=== PATIENT | female | born 1980 | race Two or more races ===

== ENCOUNTER 2019-02-05 07:08 | Emergency (ER) | payer SELFPAY ==
[~2019-02-05] VITALS: Ht 157.5 cm; Wt 115.2 kg
[2019-02-05 07:58] VITALS: BP 137/71
== END 2019-02-05 08:39 | disposition home or self-care (01) ==
LOC: ER 07:15
DX: J20.9 Acute bronchitis, unspecified (principal)

== ENCOUNTER 2024-02-06 11:17 | Emergency (ER) | payer MEDICAID, OTHER ==
[~2024-02-06] VITALS: Ht 165.1 cm; Wt 122.7 kg
[2024-02-06 11:52] LABS: Basophils # (auto) 0 10 ^3/uL (0-0.2); Basophils % (auto) 0.5 % (0.0-2.0); Eosinophils # (auto) 0.1 10 ^3/uL (0-0.8); Eosinophils % (auto) 1.6 % (0.0-7.0); Hematocrit 43.4 % (36.0-46.0); Hemoglobin 14.8 g/dL (12.2-16.2); Lymphocytes # (auto) 2.9 10 ^3/uL (0.4-5.4); Lymphocytes % (auto) 31.6 % (10.0-50.0); Mean Corpuscular Hemoglobin 31.1 pg (28.0-32.0); Mean Corpuscular Hgb Conc. 34.1 g/dL (32.0-36.0); Mean Corpuscular Volume 91.2 fL (80.0-100.0); Monocytes # (auto) 0.6 10 ^3/uL (0-1.3); Monocytes % (auto) 7.1 % (0.0-12.0); Neutrophils # (auto) 5.4 10 ^3/uL (1.6-8.6); Neutrophils % (auto) 59.2 % (37.0-80.0); Nucleated Red Blood Cells % 0.1 %; Platelet Count (auto) 293 10^3/uL (140-450); Red Blood Cells 4.75 10^6/uL (4.0-5.20); Red Cell Distribution Width 14.2 % (11.8-14.3)
[2024-02-06] MEDS: SODIUM CHLORIDE 0.9% 500 ML IV ONE (12:00)
[2024-02-06 12:17] LABS: Alanine Aminotransferase 95 U/L (7-40); Albumin 4.7 g/dL (3.2-4.8); Alkaline Phosphatase 128 U/L (46-116); Anion Gap 6 (5-15); Aspartate Aminotransferase 50 U/L (13-40); Blood Urea Nitrogen 10 mg/dL (9-23); Calcium 9.5 mg/dL (8.7-10.4); Carbon Dioxide 28 mmol/L (20-30); Chloride 108 mmol/L (98-107); Glucose 119 mg/dL (74-106); Magnesium 2.1 mg/dL (1.6-2.6); Potassium 4.2 mmol/L (3.5-5.1); Sodium 142 mmol/L (136-145)
[2024-02-06 12:18] LABS: Bilirubin, Total 0.6 mg/dL (0.2-1.0); Total Protein 8.1 g/dL (5.7-8.2)
[2024-02-06] MEDS: ASPirin 325 MG TAB PO ONE (15:40)
[2024-02-06] MEDS: NITROGLYCERIN 0.4 MG SL TAB SL ONE (15:41)
[2024-02-06 19:45] VITALS: BP 162/103; PULSE 77; RESP 17; TEMP 98.2; O2SAT 97
[2024-02-06] MEDS: HYDROcodone-ACET 5/325MG TAB PO ONE (19:53)
== END 2024-02-06 19:57 | disposition short-term general hospital (02) ==
LOC: ER 11:17
DX: R07.89 Other chest pain (principal); R94.31 Abnormal electrocardiogram [ECG] [EKG]; R42 Dizziness and giddiness
CPT/HCPCS: 36415; 71045; 80053; 83735; 84484; 85025; 93005

== ENCOUNTER 2024-05-10 21:01 | Emergency (ER) | payer OTHER ==
[~2024-05-10] VITALS: Ht 165.1 cm; Wt 132.0 kg
[2024-05-10] MEDS ORDERED: PROM1SOL4 PO (21:13)
[2024-05-10] MEDS ORDERED: OSEL75CA5 PO (21:13)
--- NOTE | 2024-05-10 21:13 | ED.PDOC ---
Eye-HPI HPI Comments This is a 44-year-old female presents to the ED flu-like symptoms times 24 hours. Patient reports symptoms of cough, fever, nausea, vomiting and dizziness. Chest pain difficulty breathing shortness of breath diarrhea recent travel or ill contacts Chief Complaint: Flu like Time Seen by MD: 21:02 Primary Care Provider: NONE Reviewed Notes: Nurses Notes, Medications, Allergies Allergies: Coded Allergies: NO KNOWN ALLERGIES (Unverified , 02/04/14) Home Meds Active Scripts Promethazine-Dm (Promethazine Dm 6.25-15 mg/5Ml) 1 Elza Elza, 5 ML PO QID PRN for 5 Days, #90 ML Prov:QUINTEN AUGUSTIN MANNEQUIN MOLDER 05/10/24 Oseltamivir Phosphate (Tamiflu) 75 Mg Cap, 1 CAP PO BID for 5 Days, #10 CAP Prov:DEMETRIAQUINTEN [facility] 05/10/24 Information Source: Patient Past Medical History PAST MEDICAL HISTORY: Denies Surgical History: Denies all surgeries DIRECTOR OF INSTRUCTION History: No Pertinent DIRECTOR OF INSTRUCTION History Family History Family History: Unknown Social History Smoker: Non-Smoker Alcohol: Occasionally Drugs: Denies Drug Use Lives In: Home Constitutional: reports: fatigue, fever; denies: chills, diaphoresis, malaise, sweats, weakness, others EENTM: reports: nasal discharge, throat pain; denies: blurred vision, double vision, ear bleeding, ear discharge, ear drainage, ear pain, ear ringing, eye pain, eye redness, hearing loss, mouth pain, mouth swelling, nose bleeding, nose congestion, nose pain, photophobia, tearing, throat swelling, voice changes, others Respiratory: reports: cough; denies: hemoptysis, orthopnea, SOB at rest, shortness of breath, SOB with excertion, stridor, wheezing, others Cardiovascular: denies: chest pain, dizzy spells, diaphoresis, Dyspnea on exertion, edema, irregular heart beat, left arm pain, lightheadedness, palpitations, PND, syncope, others Gastrointestinal: denies: abdomen distended, abdominal pain, blood streaked bowels, constipated, diarrhea, dysphagia, difficulty swallowing, hematemesis, melena, nausea, poor appetite, poor fluid intake, rectal bleeding, rectal pain, vomiting, others Genitourinary: denies: abnormal vagina bleeding, burning, dyspareunia, dysuria, flank pain, frequency, hematuria, incontinence, pain, , vagina discharge, urgency, others Neurological: denies: dizziness, fainting, headache, left sided numbness, left sided weakness, numbness, paresthesia, pre-existing deficit, right sided numbness, right sided weakness, seizure, speech problems, tingling, tremors, weakness, others Musculoskeletal: denies: back pain, gout, joint pain, joint swelling, muscle pain, muscle stiffness, neck pain, others Integumetry: denies: bruises, change in color, change in hair/nails, dryness, laceration, lesions, lumps, rash, wounds, others Allergic/Immunocompromised: denies: Difficulty Healing, Frequent Infections, Hives, Itching, others Hematologic/Lymphatic: denies: anemia, blood clots, easy bleeding, easy bruising, swollen glands, others Endocrine: denies: excessive hunger, excessive sweating, excessive thirst, excessive urination, flushing, intolerance to cold, intolerance to heat, unexp lained weight gain, unexplained weight loss, others Psychiatric: denies: anxiety, bipolar disorder, depression, hopeless, panic disorder, schizophrenia, sleepless, suicidal, others Physical Exam General Appearance: No Apparent Distress, Normal HEENT: Normal ENT Inspection, Pharynx Normal, TMs Normal Neck: Full Range of Motion, Non-Tender Respiratory: Chest Non-Tender, Lungs Clear, No Accessory Muscle Use, No Respiratory Distress, Normal Breath Sounds Cardiovascular: No Edema, No JVD, No Murmur, No Gallop, Normal Peripheral Pulses, Regular Rate/Rhythm Breast Exam: Deferred Gastrointestinal: No Organomegaly, Non Tender, No Pulsatile Mass, Normal Bowel Sounds, Soft Genitalia: Deferred Pelvic: Deferred Rectal: Deferred Extremities: Normal capillary refill, Normal inspection, Normal range of motion, Non-tender, No pedal edema Musculoskeletal : Apperance: Normal Neurologic: Alert, poker machine attendant II-XII nml as Tested, No Motor Deficits, Normal Affect, Normal Mood, No Sensory Deficits Cerebellar Function: Normal Reflexes: Normal Skin: Dry, Normal Color, Warm Lymphatic: No Adenopathy Was a procedure done? Was a procedure done?: No EENT DIFF Eye: N/A Sore Throat: Viral Pharyngitis X-Ray, Labs, Meds, VS Vital Signs Date Time Temp Pulse Resp B/P (MAP) Pulse Ox O2 Delivery O2 Flow Rate FiO2 05/11/24 01:52 98.1 71 18 144/85 (104) 95 98.1 05/11/24 01:52 71 18 95 Room Air 05/10/24 21:13 98.1 72 18 144/95 (111) 95 X-Ray, Labs, Meds, VS Comment Influenza A. Script Tamiflu and promethazine for cough. Advised to rest increase p.o. fluids with electrolytes [id number] Tylenol or Motrin as needed for fever per labeled dosing instructions follow up with your PCP in 2-3 days as necessary ER return precautions given patient indicated understanding agrees with discharge plan of care. Time of 1ST Reevaluation: 21:00 Reevaluation 1ST: Improved Patient Education/Counseling: Diagnosis, Treatment, Prognosis, Need For Follow Up Family Education/Counseling: Diagnosis, Treatment, Prognosis, Need For Follow Up Departure 1 Departure Time of Disposition: 21:11 Impression: Primary Impression: Influenza Disposition: 01 HOME / SELF CARE / HOMELESS Condition: Stable e-Prescriptions Promethazine-Dm (Promethazine Dm 6.25-15 mg/5Ml) 1 Elza Elza 5 ML PO QID PRN for 5 Days, #90 ML Prov: QUINTEN AUGUSTIN 05/10/24 Oseltamivir Phosphate (Tamiflu) 75 Mg Cap 1 CAP PO BID for 5 Days, #10 CAP Prov: QUINTEN AUGUSTIN 05/10/24 Critical Care Note Critical Care Time?: No Stability Stability form required: No QUINTEN AUGUSTIN May 10, 2024 21:13
[2024-05-11 01:52] VITALS: BP 144/85; PULSE 71; RESP 18; TEMP 98.1; O2SAT 95
[2024-05-11] MEDS: PROMETHAZINE W/CODEINE 5 ML ORAL SYRUP PO ONE (01:52)
== END 2024-05-11 01:56 | disposition home or self-care (01) ==
LOC: ER 21:01
DX: J11.1 Influenza due to unidentified influenza virus with other respiratory manifestations (principal); Z79.899 Other long term (current) drug therapy